=== PATIENT | female | born 1945 | race Caucasian/White ===

== ENCOUNTER → 2016-10-15 16:24 | Outpatient (CLI) | payer MEDICARE, OTHER | END | disposition home or self-care (01) | LOC: D.MAMMO 10:30 | DX: Z12.31 Encounter for screening mammogram for malignant neoplasm of breast (principal) ==

== ENCOUNTER → 2016-10-17 16:50 | Outpatient (CLI) | payer MEDICARE, OTHER | END | disposition home or self-care (01) | LOC: D.MAMMO 08:30 | DX: R92.8 Other abnormal and inconclusive findings on diagnostic imaging of breast (principal) ==

== ENCOUNTER 2018-01-14 08:00 | Outpatient (CLI) | payer MEDICARE, OTHER | END 2018-01-14 11:41 | disposition home or self-care (01) | LOC: D.MAMMO 08:00 | DX: Z12.31 Encounter for screening mammogram for malignant neoplasm of breast (principal) ==

== ENCOUNTER → 2018-07-30 18:22 | Outpatient (CLI) | payer MEDICARE, OTHER | END | disposition home or self-care (01) | LOC: D.LABREF 18:22 | DX: E88.01 Alpha-1-antitrypsin deficiency (principal) ==

== ENCOUNTER → 2018-08-20 07:37 | Outpatient (CLI) | payer MEDICARE, OTHER | END | disposition home or self-care (01) | LOC: D.RT 07:37 | DX: E88.01 Alpha-1-antitrypsin deficiency (principal) ==

== ENCOUNTER → 2019-02-19 08:06 | Outpatient (CLI) | payer MEDICARE, OTHER ==
--- NOTE | 2019-02-19 11:13 | NUR ---
TIME OUT PERFORMED @ [address] MORRELL & JOSAFAT ROMANO RTR PROCEDURE & PATIENT VERIFIED
== END | disposition home or self-care (01) ==
LOC: D.RAD 08:06
PROVIDERS: ATTEND Internal Medicine Gastroenterology
DX: Z01.89 Encounter for other specified special examinations (principal)

== ENCOUNTER 2019-05-14 09:00 | Outpatient (CLI) | payer MEDICARE, OTHER | END 2019-05-14 10:00 | disposition home or self-care (01) | LOC: D.MAMMO 09:00 | PROVIDERS: ATTEND Family Medicine | DX: Z12.31 Encounter for screening mammogram for malignant neoplasm of breast (principal) ==

== ENCOUNTER 2020-03-15 08:09 | Outpatient (CLI) | payer MEDICARE, OTHER | END 2020-03-15 23:59 | disposition home or self-care (01) | LOC: D.MAMMO 08:09 | PROVIDERS: ATTEND Family Medicine | DX: N64.4 Mastodynia (principal) ==